=== PATIENT | female | born 1975 | race Caucasian/White ===

== ENCOUNTER 2017-10-07 12:02 | Emergency (ER) | payer OTHER ==
[~2017-10-07] VITALS: Ht 165.1 cm; Wt 74.8 kg
[~2017-10-07 12:02] MED LIST: AMITRIPTYLINE100 MG PO; ATIVAN1 MG PO; BACTRIM DS TAB1 EACH PO; CRANBERRY PLUS1 EACH PO; ESTRACE2 M3 PO; FENTANYL PATCH75 MCG TRANSDERM; FENTANYL1 EAC2 TRANSDERM; FISH OIL 1,001000 M2 PO; HYDROXYZINE HCL25 M1 PO; HYDROXYZINE HCL50 MG PO; KEFLEX500 MG PO; LAMICTAL200 MG PO; LEVOTHYROXINE 0.1 MG PO; LEXAPRO 10 MG T10 M1 PO; LOPRESSOR25 PO; LUNESTA3 MG PO; MACROBID 100 M100 M1 PO; NEXIUM40 MG PO; NORCO 5-325 TA1 EACH PO; PROPRANOLOL 1010 MG PO; RANITIDINE HCL300 M1 PO; SEROQUEL 50 MG50 MG PO; TRAZODONE 150150 M1 PO; TRAZODONE HCL100 MG PO; TYLENOL325 MG PO; VALIUM5 MG PO; VITAMIN B-12100 MC1 PO; VITAMIN D-32000 UNIT PO; ZANAFLEX4 MG PO; ZOLOFT50 MG PO
== END 2017-10-07 14:05 | disposition home or self-care (01) ==
LOC: ER 12:02
DX: S01.81XA Laceration without foreign body of other part of head, initial encounter (principal); E03.9 Hypothyroidism, unspecified; F17.210 Nicotine dependence, cigarettes, uncomplicated; Z88.2 Allergy status to sulfonamides; Z88.8 Allergy status to other drugs, medicaments and biological substances; Z90.89 Acquired absence of other organs; W01.198A Fall on same level from slipping, tripping and stumbling with subsequent striking against other object, initial encounter; Y92.89 Other specified places as the place of occurrence of the external cause; Y93.89 Activity, other specified; Y99.8 Other external cause status